=== PATIENT | female | born 1975 | race Asian ===

== ENCOUNTER 2020-06-02 09:53 | Emergency (ER) | payer SELFPAY ==
[~2020-06-02] VITALS: Ht 144.8 cm; Wt 49.4 kg
[2020-06-02] MEDS ORDERED: HYDROXYZINE HCL10 MG PO (10:09)
[2020-06-02] MEDS ORDERED: CEPHALEXIN250 MG PO (10:09)
[2020-06-02] MEDS ORDERED: HYDROCORTISONE15 G2 TD (10:29)
[2020-06-02] MEDS ORDERED: PREDNISONE50 MG PO (10:30)
== END 2020-06-02 10:37 | disposition home or self-care (01) ==
LOC: FSED 10:30
DX: L25.9 Unspecified contact dermatitis, unspecified cause (principal)
CPT/HCPCS: 99282